=== PATIENT | female | born 1960 | race Caucasian/White ===

== ENCOUNTER 2016-06-17 17:17 | Emergency (ER) | payer OTHER ==
--- NOTE | 2016-06-17 18:42 | ED CLINICAL REPORT ---
Clinical Report - Physicians/Mid Levels [facility] [address] [place] [address] 06/17/2016 17:19 Patient: PAULA RODRIGUEZ Time Seen: 17:32; initial patient contact, initial documentation, patient care assumed. Arrived- By private vehicle. Historian- patient. HISTORY OF PRESENT ILLNESS Chief Complaint: Injury to the right index finger. The injury happened today. The patient sustained a laceration from a blunt force (hit finger on door frame). Occurred at home. Patient is experiencing moderate pain. Patient denies injury to the head or neck. No other injury. ( went to walk in clinic architectural project captain, sent here for further eval, because pt needed sedation for wound care, and they don't sedate pt telling we can not suture her finger without being sedated, and that she suffers from bad anxiety and twitching). REVIEW OF SYSTEMS The patient sustained a laceration. She has had swelling. No tingling, numbness, weakness or foreign body. All systems otherwise negative, except as recorded above. PAST HISTORY See nurses notes. PROBLEMS: Anxiety disorder. --17:45 Wanda Cooley R.N. ADDITIONAL SURGERIES: Carpal Tunnel Surgery. . Gallbladder Surgery. Rotator Cuff Surgery. Thumb surgery. Tonsillectomy. Uterine polyp removal. --17:52 Wanda Cooley R.N. The patient's dominant hand is the right. Tetanus immunization status is up-to-date. SOCIAL HISTORY Never smoker. Occasional alcohol use. History of heavy drug use: marijuana. Recently used drugs. No recent travel. Is a local resident. She lives with spouse. FAMILY HISTORY No significant family medical history. ADDITIONAL NOTES The nursing notes have been reviewed with agreement regarding the chief complaint, HPI, ROS, PMH and patient medications and allergies. PHYSICAL EXAM Appearance: Alert. Oriented X3. Anxious. No acute distress. (pt jerking and twitching, tourrettes vs psychogenic). Head: Head atraumatic. Eyes: Pupils equal, round and reactive to light. Eyes normal inspection. Respiratory: No respiratory distress. Skin: Skin warm and dry. Skin intact. Extremities: Hand injury present. Right index finger: mild tenderness and swelling, superficial 1.5 cm laceration and small ecchymosis of the dorsal aspect and middle phalanx; limited movement secondary to pain (diminished flexion). Neurovascular intact distally. (superficial L shaped flap lac, no active bleeding, no closure needed). No erythema, abrasion, puncture wound, foreign body or deformity. No subungual hematoma or amputation present. No wrist injury. Hand and wrist exam otherwise negative. Extremities otherwise negative. Neuro, Vascular and Tendons: Vascular status intact. Sensation intact. Motor intact. Tendon function intact. Neuro: Oriented X 3. No motor deficit. No sensory deficit. LABS, X-RAYS, AND EKG X-Rays: X-rays are normal and reveal no acute disease (reviewed by dr saunders). Right digit(s) negative. The X-rays were independently viewed by me. PROGRESS AND PROCEDURES Patient and spouse counseled in person regarding the patient's stable condition, test results and diagnosis. 1840. Differential Diagnosis: Other possible considerations: finger fx, contusion, lac, fb. Above considerations are based on history, physical exam and X-Ray data. Differential diagnosis was discussed with patient and patient's spouse. Disposition: Discharged home in good and improved condition (18:42). Condition: good and stable. CLINICAL IMPRESSION Single superficial laceration to the right index finger.Treatment of laceration not delayed. No infection, foreign body present or right fingernail injury. INSTRUCTIONS Protect wound and keep wound area clean. Change dressing twice daily. Soak in warm soapy water twice daily. Apply bacitracin twice daily. Warnings: GENERAL WARNINGS: Return or contact your physician immediately if your condition worsens or changes unexpectedly, if not improving as expected, or if other problems arise. Specifically return if problem worsens. Follow-up: Follow up with your doctor in about three days as needed and for wound check. Call for an appointment. Summary of care provided to patient. Understanding of the discharge instructions verbalized by patient. (Electronically signed by Isabel Ortiz A.R.N.P. 06/17/2016 19:47)
--- NOTE | 2016-06-17 18:42 | ED CLINICAL REPORT ---
Clinical Report - Physicians/Mid Levels [facility] [address] [place] [address] 06/17/2016 17:19 Patient: PAULA RODRIGUEZ Time Seen: 17:32; initial patient contact, initial documentation, patient care assumed. Arrived- By private vehicle. Historian- patient. HISTORY OF PRESENT ILLNESS Chief Complaint: Injury to the right index finger. The injury happened today. The patient sustained a laceration from a blunt force (hit finger on door frame). Occurred at home. Patient is experiencing moderate pain. Patient denies injury to the head or neck. No other injury. ( went to walk in clinic chaser tar, sent here for further eval, because pt needed sedation for wound care, and they don't sedate pt telling we can not suture her finger without being sedated, and that she suffers from bad anxiety and twitching). REVIEW OF SYSTEMS The patient sustained a laceration. She has had swelling. No tingling, numbness, weakness or foreign body. All systems otherwise negative, except as recorded above. PAST HISTORY See nurses notes. PROBLEMS: Anxiety disorder. --17:45 Wanda Cooley R.N. ADDITIONAL SURGERIES: Carpal Tunnel Surgery. . Gallbladder Surgery. Rotator Cuff Surgery. Thumb surgery. Tonsillectomy. Uterine polyp removal. --17:52 Wanda Cooley R.N. The patient's dominant hand is the right. Tetanus immunization status is up-to-date. SOCIAL HISTORY Never smoker. Occasional alcohol use. History of heavy drug use: marijuana. Recently used drugs. No recent travel. Is a local resident. She lives with spouse. FAMILY HISTORY No significant family medical history. ADDITIONAL NOTES The nursing notes have been reviewed with agreement regarding the chief complaint, HPI, ROS, PMH and patient medications and allergies. PHYSICAL EXAM Appearance: Alert. Oriented X3. Anxious. No acute distress. (pt jerking and twitching, tourrettes vs psychogenic). Head: Head atraumatic. Eyes: Pupils equal, round and reactive to light. Eyes normal inspection. Respiratory: No respiratory distress. Skin: Skin warm and dry. Skin intact. Extremities: Hand injury present. Right index finger: mild tenderness and swelling, superficial 1.5 cm laceration and small ecchymosis of the dorsal aspect and middle phalanx; limited movement secondary to pain (diminished flexion). Neurovascular intact distally. (superficial L shaped flap lac, no active bleeding, no closure needed). No erythema, abrasion, puncture wound, foreign body or deformity. No subungual hematoma or amputation present. No wrist injury. Hand and wrist exam otherwise negative. Extremities otherwise negative. Neuro, Vascular and Tendons: Vascular status intact. Sensation intact. Motor intact. Tendon function intact. Neuro: Oriented X 3. No motor deficit. No sensory deficit. LABS, X-RAYS, AND EKG X-Rays: X-rays are normal and reveal no acute disease (reviewed by dr saunders). Right digit(s) negative. The X-rays were independently viewed by me. PROGRESS AND PROCEDURES Patient and spouse counseled in person regarding the patient's stable condition, test results and diagnosis. 1840. Differential Diagnosis: Other possible considerations: finger fx, contusion, lac, fb. Above considerations are based on history, physical exam and X-Ray data. Differential diagnosis was discussed with patient and patient's spouse. Disposition: Discharged home in good and improved condition (18:42). Condition: good and stable. CLINICAL IMPRESSION Single superficial laceration to the right index finger.Treatment of laceration not delayed. No infection, foreign body present or right fingernail injury. INSTRUCTIONS Protect wound and keep wound area clean. Change dressing twice daily. Soak in warm soapy water twice daily. Apply bacitracin twice daily. Warnings: GENERAL WARNINGS: Return or contact your physician immediately if your condition worsens or changes unexpectedly, if not improving as expected, or if other problems arise. Specifically return if problem worsens. Follow-up: Follow up with your doctor in about three days as needed and for wound check. Call for an appointment. Summary of care provided to patient. Understanding of the discharge instructions verbalized by patient. (Electronically signed by Isabel Ortiz A.R.N.P. 06/17/2016 19:47)
--- NOTE | 2016-06-17 18:43 | ED NURSING NOTES ---
Clinical Report - Nurses [facility] [place] [address] [place] [address] 06/17/2016 17:19 Patient: PAULA RODRIGUEZ TRIAGE Triage time 17:34. Acuity: LEVEL 4. Chief Complaint: LACERATION. 17:57 06/17/16. Alert. No acute distress. SEPSIS SCREEN: Sepsis Screen. Negative (no infection suspected/documented). VIVIENNE COMA SCORE: Vivienne Coma Scale: 15- eyes open spontaneously (4); best verbal response- oriented x 4 (5); best motor response- obeys commands (6). --17:57 Wanda Cooley R.N. 17:34 06/17/16. BP: 121/62. HR: 70. RR: 14. O2 saturation: 100%. Temp: 98.3 F. Pain level now: 0/10. --17:57 Wanda Cooley R.N. Weight: 66.6 kg stated. Height/Length: 62 inches Per Patient. BMI: 26.9. --17:53 Wanda Cooley R.N. Medications None. --17:44 Wanda Cooley R.N. Allergies Erythromycin. --17:44 Wanda Cooley R.N. Codeine. --17:44 Wanda Cooley R.N. Sulfa Antibiotics. --17:45 Wanda Cooley R.N. History Historian: patient. Primary physician (Dr Mora). ( Patient states she went to [facility] prior to arrival. She came here instead because she reports that they would not take her insurance or provide her with sedation.). Location of injuries: right index finger and tip of right index finger. This occurred today. Occurred at home. ( Patient states "I was moving into our new home. I turned around and hit my finger on the molding."). Treatment MANAGER ENVIRONMENTAL HEALTH AND SAFETY: None. PAST MEDICAL HX: Tetanus status: up-to-date. Immunizations: up-to-date. ( Patient states "I have had really bad anxiety. I've had bad experiences with the medical field and it makes me very anxious to be here. It makes my twitching really bad."). SOCIAL HX: Never smoker. Occasional alcohol use. History of heavy drug use: marijuana. FALL RISK ASSESSMENT: Fall risk assessment completed. No fall risk identified. NUTRITIONAL RISK ASSESSMENT: The nutritional risk assessment revealed no deficiencies. FUNCTIONAL ASSESSMENT: Functional assessment: no impairments noted. LEARNING NEEDS ASSESSMENT: The learning needs assessment revealed no barriers. SKIN INTEGRITY ASSESSMENT: Skin integrity risk assessment completed. No skin integrity risk identified. --17:57 Wanda Cooley R.N. PROBLEMS: Anxiety disorder. --17:45 Wanda Cooley R.N. ADDITIONAL SURGERIES: Carpal Tunnel Surgery. . Gallbladder Surgery. Rotator Cuff Surgery. Thumb surgery. Tonsillectomy. Uterine polyp removal. --17:52 Wanda Cooley R.N. Interventions ID band on patient. To treatment room. --17:57 Wanda Cooley R.N. PHYSICAL ASSESSMENT GENERAL / NEURO / PSYCH: Alert. Oriented X 4. Appears in no acute distress. RESPIRATORY: Respirations not labored. CVS: Capillary refill less than 2 seconds. EXTREMITIES: Right index finger: tenderness, swelling, erythema, ecchymosis and superficial laceration. Limited movement secondary to pain (diminished flexion). SKIN: Skin intact. Skin is warm and dry. --17:58 Wanda Cooley R.N. NURSING PROGRESS NOTES 17:59 06/17/16. Two patient identifiers checked. Call light placed in reach. Side rails up x 2. Bed placed in lowest position. Brakes of bed on. --17:59 Wanda Cooley R.N. DISPOSITION / DISCHARGE 18:55 06/17/16. Discharge instructions provided and reviewed with the patient. Treatments reviewed. Patient and kettle skimmer verbalized understanding. Written instructions provided in Swiss. The patient was discharged by the nurse practitioner. She was discharged home and accompanied by kettle skimmer. She left the Emergency Department ambulatory and via private vehicle. Custodial Worker driving. --18:55 Wanda Cooley R.N. 18:53 06/17/16. BP: 115/67. HR: 67. RR: 12. O2 saturation: 96%. Temp: deferred. Pain level now: 04/14. --18:55 Wanda Cooley R.N. <<STRICKEN ENTRY-- 18:53 06/17/16. BP: 115/67. HR: 67. RR: 12. O2 saturation: 96%. Pain level now: 04/14. --18:55 Wanda Coolye R.N. --END STRIKE>> Correction. --18:56 Wanda Cooley R.N. 18:53 06/17/16. BP: 115/67. HR: 67. RR: 12. O2 saturation: 96%. Temp: deferred. Pain level now: 04/14. --18:57 Wanda Cooley R.N. Locked/Released at 06/17/2016 19:05 by Wanda Cooley R.N.
--- NOTE | 2016-06-17 18:43 | ED ORDER SUMMARY ---
..... Patient: PAULA RODRIGUEZ OrderSheet [facility] VisitID: [id number] [address] [place] [address] 55y, F Registration Date/Time: 06/17/2016 ORDER SHEET Weight: 66.6 kg (stated) Allergies: Erythromycin, Codeine, Sulfa Antibiotics GENERAL ORDERS: Finger Right (2) Urgent (17:40 06/17/2016 HBivens A.R.N.P.) (Ack 17:44 TBergley) (18:16 RMarsden R.N.) Dress Wounds (steri strips) (17:41 06/17/2016 HBivens A.R.N.P.) (18:16 RMarsden R.N.) MEDICATION ORDERS: IV FLUIDS: ORDER SHEET NOTES: [Electronically signed by Wanda Cooley R.N. (19:05 06/17/2016)] [Electronically signed by Isabel Ortiz.R.N.P. (19:47 06/17/2016)] [Electronically locked/signed by Wanda Cooley R.N. (19:05 06/17/2016)]
--- NOTE | 2016-06-17 18:43 | ED ORDER SUMMARY ---
..... Patient: PAULA RODRIGUEZ OrderSheet [facility] VisitID: [id number] [address] [place] [address] 55y, F Registration Date/Time: 06/17/2016 ORDER SHEET Weight: 66.6 kg (stated) Allergies: Erythromycin, Codeine, Sulfa Antibiotics GENERAL ORDERS: Finger Right (2) Urgent (17:40 06/17/2016 HBivens A.R.N.P.) (Ack 17:44 TBergley) (18:16 RMarsden R.N.) Dress Wounds (steri strips) (17:41 06/17/2016 HBivens A.R.N.P.) (18:16 RMarsden R.N.) MEDICATION ORDERS: IV FLUIDS: ORDER SHEET NOTES: [Electronically signed by Wanda Cooley R.N. (19:05 06/17/2016)] [Electronically signed by Isabel Ortiz.R.N.P. (19:47 06/17/2016)] [Electronically locked/signed by Wanda Cooley R.N. (19:05 06/17/2016)]
--- NOTE | 2016-06-17 18:43 | ED NURSING NOTES ---
Clinical Report - Nurses [facility] [place] [address] [place] [address] 06/17/2016 17:19 Patient: PAULA RODRIGUEZ TRIAGE Triage time 17:34. Acuity: LEVEL 4. Chief Complaint: LACERATION. 17:57 06/17/16. Alert. No acute distress. SEPSIS SCREEN: Sepsis Screen. Negative (no infection suspected/documented). VIVIENNE COMA SCORE: Vivienne Coma Scale: 15- eyes open spontaneously (4); best verbal response- oriented x 4 (5); best motor response- obeys commands (6). --17:57 Wanda Cooley R.N. 17:34 06/17/16. BP: 121/62. HR: 70. RR: 14. O2 saturation: 100%. Temp: 98.3 F. Pain level now: 0/10. --17:57 Wanda Cooley R.N. Weight: 66.6 kg stated. Height/Length: 62 inches Per Patient. BMI: 26.9. --17:53 Wanda Cooley R.N. Medications None. --17:44 Wanda Cooley R.N. Allergies Erythromycin. --17:44 Wanda Cooley R.N. Codeine. --17:44 Wanda Cooley R.N. Sulfa Antibiotics. --17:45 Wanda Cooley R.N. History Historian: patient. Primary physician (Dr Mora). ( Patient states she went to [facility] prior to arrival. She came here instead because she reports that they would not take her insurance or provide her with sedation.). Location of injuries: right index finger and tip of right index finger. This occurred today. Occurred at home. ( Patient states "I was moving into our new home. I turned around and hit my finger on the molding."). Treatment ZYGLO TECHNICIAN: None. PAST MEDICAL HX: Tetanus status: up-to-date. Immunizations: up-to-date. ( Patient states "I have had really bad anxiety. I've had bad experiences with the medical field and it makes me very anxious to be here. It makes my twitching really bad."). SOCIAL HX: Never smoker. Occasional alcohol use. History of heavy drug use: marijuana. FALL RISK ASSESSMENT: Fall risk assessment completed. No fall risk identified. NUTRITIONAL RISK ASSESSMENT: The nutritional risk assessment revealed no deficiencies. FUNCTIONAL ASSESSMENT: Functional assessment: no impairments noted. LEARNING NEEDS ASSESSMENT: The learning needs assessment revealed no barriers. SKIN INTEGRITY ASSESSMENT: Skin integrity risk assessment completed. No skin integrity risk identified. --17:57 Wanda Cooley R.N. PROBLEMS: Anxiety disorder. --17:45 Wanda Cooley R.N. ADDITIONAL SURGERIES: Carpal Tunnel Surgery. . Gallbladder Surgery. Rotator Cuff Surgery. Thumb surgery. Tonsillectomy. Uterine polyp removal. --17:52 Wanda Cooley R.N. Interventions ID band on patient. To treatment room. --17:57 Wanda Cooley R.N. PHYSICAL ASSESSMENT GENERAL / NEURO / PSYCH: Alert. Oriented X 4. Appears in no acute distress. RESPIRATORY: Respirations not labored. CVS: Capillary refill less than 2 seconds. EXTREMITIES: Right index finger: tenderness, swelling, erythema, ecchymosis and superficial laceration. Limited movement secondary to pain (diminished flexion). SKIN: Skin intact. Skin is warm and dry. --17:58 Wanda Cooley R.N. NURSING PROGRESS NOTES 17:59 06/17/16. Two patient identifiers checked. Call light placed in reach. Side rails up x 2. Bed placed in lowest position. Brakes of bed on. --17:59 Wanda Cooley R.N. DISPOSITION / DISCHARGE 18:55 06/17/16. Discharge instructions provided and reviewed with the patient. Treatments reviewed. Patient and bin tripper operator verbalized understanding. Written instructions provided in Mauritanian. The patient was discharged by the nurse practitioner. She was discharged home and accompanied by bin tripper operator. She left the Emergency Department ambulatory and via private vehicle. Sifter And Miller driving. --18:55 Wanda Cooley R.N. 18:53 06/17/16. BP: 115/67. HR: 67. RR: 12. O2 saturation: 96%. Temp: deferred. Pain level now: 04/14. --18:55 Wanda Cooley R.N. <<STRICKEN ENTRY-- 18:53 06/17/16. BP: 115/67. HR: 67. RR: 12. O2 saturation: 96%. Pain level now: 04/14. --18:55 Wanda Cooley R.N. --END STRIKE>> Correction. --18:56 Wanda Cooley R.N. 18:53 06/17/16. BP: 115/67. HR: 67. RR: 12. O2 saturation: 96%. Temp: deferred. Pain level now: 04/14. --18:57 Wanda Cooley R.N. Locked/Released at 06/17/2016 19:05 by Wanda Cooley R.N.
--- NOTE | 2016-06-17 19:48 | ED MAR SUMMARY ---
..... Medication Administration Record [facility] [address] [place], [place] [id number] Patient: PAULA RODRIGUEZ Visit ID: [id number] 55y, F Weight: 66.6 kg Height/Length: 62 in BMI: 26.9 ALLERGIES: Sulfa Antibiotics, Codeine, Erythromycin
--- NOTE | 2016-06-17 19:48 | ED MED RECONCILIATION SUMMARY ---
Patient: PAULA RODRIGUEZ Medication Reconciliation Report [facility] VisitID: [id number] [address] [place] [address] 55y, F Registration Date/Time: 06/17/2016 Weight: 66.6 kg Height/Length: 62 in. BMI: 26.9 ALLERGIES: Codeine, Erythromycin, Sulfa Antibiotics The patient's Home Medications are listed below: NONE. The source(s) of the original Home Medication information: Not obtained. The following Medications were given to the patient in the Emergency Department: None. The following Medications were prescribed to the patient: None.
--- NOTE | 2016-06-17 19:48 | ED MAR SUMMARY ---
..... Medication Administration Record [facility] [address] [place], [place] [id number] Patient: PAULA RODRIGUEZ Visit ID: [id number] 55y, F Weight: 66.6 kg Height/Length: 62 in BMI: 26.9 ALLERGIES: Sulfa Antibiotics, Codeine, Erythromycin
--- NOTE | 2016-06-17 19:48 | ED MED RECONCILIATION SUMMARY ---
Patient: PAULA RODRIGUEZ Medication Reconciliation Report [facility] VisitID: [id number] [address] [place] [address] 55y, F Registration Date/Time: 06/17/2016 Weight: 66.6 kg Height/Length: 62 in. BMI: 26.9 ALLERGIES: Codeine, Erythromycin, Sulfa Antibiotics The patient's Home Medications are listed below: NONE. The source(s) of the original Home Medication information: Not obtained. The following Medications were given to the patient in the Emergency Department: None. The following Medications were prescribed to the patient: None.
--- NOTE | 2016-06-17 19:48 | ED DISCHARGE INSTRUCTIONS ---
Patient: PAULA RODRIGUEZ General Instructions [facility] VisitID: [id number] [place] [address] 55y, F Registration Date/Time: 06/17/2016 Single superficial laceration to the right index finger.Treatment of laceration not delayed. No infection, foreign body present or right fingernail injury. INSTRUCTIONS Protect wound and keep wound area clean. Change dressing twice daily. Soak in warm soapy water twice daily. Apply bacitracin twice daily. Warnings: GENERAL WARNINGS: Return or contact your physician immediately if your condition worsens or changes unexpectedly, if not improving as expected, or if other problems arise. Specifically return if problem worsens. Follow-up: Follow up with your doctor in about three days as needed and for wound check. Call for an appointment. Summary of care provided to patient. Understanding of the discharge instructions verbalized by patient. ADDITIONAL INFORMATION Laceration (All Closures) Alaceration is a cut through the skin. This will usually require stitches (sutures) or merle if it is deep. Minor cuts may be treated with a surgical tape closure orskin glue. Home care The following guidelines will help you care for your laceration at home: Extremity, face, or trunk wounds Keep the wound clean and dry. If a bandage was applied and it becomes wet or dirty, replace it. Otherwise, leave it in place for the first 24 hours. If stitches or merle were used, clean the wound daily. After removing the bandage, wash the area with soap and water. Use a wet cotton swab to loosen and remove any blood or crust that forms. The doctor may prescribe an antibiotic cream or ointment to prevent infection. Do not stop taking this medication until you have finished the prescribed course or the doctor tells you to stop. The doctor may also prescribe medications for pain. Follow the doctors instructions for taking these medications. You may remove the bandage to shower as usual after the first 24 hours, but do not soak the area in water (no swimming) until the stitches or merle are removed. If surgical tape was used, keep the area clean and dry. If it becomes wet, blot it dry with a towel. If skin glue was used, do not scratch, rub, or pick at the adhesive film. Do not place tape directly over the film. Do not apply liquid, ointment, or creams to the wound while the film is in place. Do not clean the wound with peroxide and do not apply ointments. Avoid activities that cause heavy sweating until the film has fallen off. Protect the wound from prolonged exposure to sunlight or tanning lamps. You may shower as usual but do not soak the wound in water (no baths or swimming). The film will fall off by itself in 510 days. Scalp wounds During the first two days, you may carefully rinse your hair in the shower to remove blood, glass or dirt particles. After two days, you may shower and shampoo your hair normally. Do not soak your scalp in the tub or go swimming until the stitches or merle have been removed. Talk with your doctor before applying any antibiotic ointment to the wound. Mouth wounds Eat soft foods to reduce pain. If the cut is inside of your mouth, clean by rinsing after each meal and at bedtime with a mixture of equal parts water and hydrogen peroxide (do not swallow!). Or, you can use a cotton swab to directly apply hydrogen peroxide onto the cut. Mouth wounds can be painful when eating. You may use an xcdo-rpl-[id number] local numbing solution for pain relief. If this is not available, you may use any numbing solution for teething babies. You may apply this directly to the sores with a cotton-tip swab or with your finger. Follow-up care Follow up with your health care provider. Most skin wounds heal within ten days. Mouth and facial wounds heal within five days. However, even with proper treatment, a wound infection may sometimes occur. Therefore, you should check the wound daily for signs of infection listed below. Stitches should be removed from the face within five days; stitches and merle should be removed from other parts of the body within 714 days. If dissolving stitches were used in the mouth, these will fall out or dissolve without the need for removal. If tape closures were used, remove them yourself if they have not fallen off after 7 days. Ifskin glue was used, the film will fall off by itself in 510 days. When to seek medical care Get prompt medical attention if any of these occur: Bleeding not controlled by direct pressure Signs of infection, including increasing pain in the wound, increasing wound redness or swelling, or pus coming from the wound Fever of 100.4F (38C) or higher, or as directed by your health care provider Stitches or merle come apart or fall out or surgical tape falls off before 7 days Wound edges re-open Laceration, Extremity (Sutures, Merle, Or Tape) A laceration is a cut through the skin. This will usually require stitches (sutures) or merle if it is deep. Minor cuts may be treated with surgical tape closures. Home care The following guidelines will help you care for your laceration at home: Keep the wound clean and dry. If a bandage was applied and it becomes wet or dirty, replace it. Otherwise, leave it in place for the first 24 hours, then change it once a day or as directed. If stitches or merle were used, clean the wound daily: After removing the bandage, wash the area with soap and water. Use a wet cotton swab to loosen and remove any blood or crust that forms. After cleaning, keep the wound clean and dry. Talk with your doctor before applying any antibiotic ointment to the wound. Reapply the bandage. You may remove the bandage to shower as usual after the first 24 hours, but do not soak the area in water (no swimming) until the stitches or merle are removed. If surgical tape closures were used, keep the area clean and dry. If it becomes wet, blot it dry with a towel. The doctor may prescribe an antibiotic cream or ointment to prevent infection. Do not stop taking this medication until you have finished the prescribed course or the doctor tells you to stop. The doctor may also prescribe medications for pain. Follow the doctors instructions for taking these medications. If you have chronic liver or kidney disease or ever had a stomach ulcer or GI bleeding, talk with your doctor before using these medicines. Follow-up care Follow up with your health care provider. Most skin wounds heal within ten days. However, an infection may sometimes occur despite proper treatment. Therefore, check the wound daily for the signs of infection listed below. Stitches and merle should be removed within 714 days. If surgical tape closures were used, you may remove them after 10 days, if they have not fallen off by then. Notify your doctor if you notice persistent numbness or weakness in the injured extremity. (Note:A radiologist will review any X-rays that were taken. We will notify you of any new findings that may affect your care.) When to seek medical care Get prompt medical attention if any of these occur: Increasing pain in the wound Redness, swelling, or pus coming from the wound Fever of 100.4F (38C) or higher, or as directed by your health care provider If stitches or merle come apart or fall out before your next appointment If the surgical tape closures fall off within seven days, or the wound edges re-open Bleeding not controlled by direct pressure You have been given the following additional information: Laceration, All Laceration, Extrem (Suture, Staple, Or Tape) (Electronically signed by Isabel Ortiz A.R.N.P. 06/17/2016 19:47)
--- NOTE | 2016-06-17 20:21 | DIAGNOSTIC IMAGING REPORT ---
PROCEDURE: XR FINGER - RIGHT INDICATION: TRAUMA/INJURY TECHNIQUE: A P hand and two views of the right second digit. COMPARISON: None. FINDINGS: Normal mineralization. No fractures. Normal osseous alignment. Mild osteoarthritic changes. No suspicious soft-tissue calcification or radiodense foreign bodies. IMPRESSION: 1. Intact hand and right second digit.
== END 2016-06-17 18:55 | disposition home or self-care (01) ==
LOC: ED SRH 17:17
DX: S61.210A Laceration without foreign body of right index finger without damage to nail, initial encounter (principal); W22.8XXA Striking against or struck by other objects, initial encounter; Y92.009 Unspecified place in unspecified non-institutional (private) residence as the place of occurrence of the external cause; Y99.9 Unspecified external cause status; Y93.9 Activity, unspecified